=== PATIENT | female | born 1960 | race Caucasian/White ===

== ENCOUNTER → 2017-11-03 13:48 | Outpatient (CLI) | payer OTHER, SELFPAY | PROVIDERS: Visit Provider Obstetrics & Gynecology | DX: N39.0 Urinary tract infection, site not specified (principal) | CPT/HCPCS: 87086; 87088; 87186 ==

== ENCOUNTER → 2019-01-07 13:06 | Outpatient (CLI) | payer OTHER, SELFPAY ==
[2016-12-03 08:33] VITALS: BMI 24.3
[2019-01-09 15:55] LABS: HPV Reflexed? NOT INDICATED
== END ==
PROVIDERS: Visit Provider Obstetrics & Gynecology
DX: Z12.4 Encounter for screening for malignant neoplasm of cervix (principal)
CPT/HCPCS: 88175; G0145

== ENCOUNTER 2019-08-15 13:46 | Emergency (ER) | payer OTHER, SELFPAY ==
[2019-08-15 13:47] VITALS: BP 124/74; PULSE 77; PULSE 80; RESP 16; RESP 18; TEMP 36.9; O2SAT 100; BMI 22.7
--- NOTE | 2019-08-15 14:06 | RAD_ITS ---
STUDY: X-RAY - RIGHT KNEE REASON FOR EXAM: Female, 59 years old. Anterior knee pain following a fall. TECHNIQUE: 4 view(s) of the knee. COMPARISON: None. FINDINGS: Normal visualized distal femur. Normal visualized proximal tibia and fibula. Normal proximal tibiofibular articulation. Normal medial femorotibial compartment. Normal lateral femorotibial compartment. Normal patellofemoral articulation. Tiny joint effusion. RAD/Knee 4 or More Views IMPRESSION: Tiny joint effusion. Electronically Signed: Dax Lira, at 14:24 EST , Service support ,
--- NOTE | 2019-08-15 14:06 | ED.DCSUM_ITS ---
- ER Visit Summary Date of Service: 08/15/19 Chief Complaint: Fall and right knee pain History of Present Illness: The patient is a 59 F no seen past medical history. She slipped and fell on a rug at work landed on her right knee on linoleum floor. She denies any other injuries. Complaining of knee pain. She did use crutches to get in here. She did take a Tylenol at home with nothing for pain. She has no new history of prior surgery. She denies striking her head. Physical Examination: Middle-aged female. No acute distress. Vital signs are stable and afebrile. H EENT exam unremarkable. Atraumatic. Pupils round reactive light. Neck nontender. Lungs clear to auscultation bilaterally. Chest wall nontender. Heart regular rhythm no murmur. Abdomen soft nontender. Pelvic girdle intact and nontender. Upper extremities are nontender with normal range of motion. Left lower extremity is nontender. Right knee as a contusion. Is tender. She is able to lift the leg off the bed. Extensor mechanism is intact. Right hip and ankle are nontender. Neurovascular intact. She has normal dorsi plantarflexion her right foot and a normal DP pulse. The right knee she has limited flexion due to discomfort. There is no gross bony deformity. There is currently no effusion. Neurologic exam is normal. She is awake and alert with no focal deficits. Test Results: Right knee x-ray 4 views read by myself shows a small effusion otherwise no acute fracture or dislocation. Read both by myself and the radiologist. I went over the films with the patient. Emergency Department Course and Treatment: Knee will be x-rayed. She does not currently want anything for pain. She took Tylenol at home. Treatment Plan: Ice to her knee. Motrin for pain and swelling Tylenol for pain. Crutches as needed. Increase weightbearing as tolerated. Follow-up if not improving. Disposition: Discharge Impression: Acute fall at work Right knee contusion Worker's Comp. injury This note was generated with [employer] dictation software. It may contain incorrect words, spelling, and punctuation that were not noted in review of the chart prior to signing ED Disposition - Plan for ED Patient: Referrals: Cyndi Daniels MD [Primary Care Provider] -
--- NOTE | 2019-08-15 15:07 | ED.DEP ---
ED Disposition - Plan for ED Patient: Disposition: Home or Assisted Living Instructions: CONTUSION, Lower Extremity Referrals: Cyndi Daniels MD [Primary Care Provider] - 1 Week if not improving Additional Instructions: Ice and elevate your knee to decrease pain and swelling. Tylenol for pain and Motrin for pain and swelling. This should progressively improve if not follow-up for further evaluation.
== END 2019-08-15 15:28 | disposition home or self-care (01) ==
PROVIDERS: Emergency Provider Emergency Medicine; Family Provider Internal Medicine; PCP Internal Medicine
DX: S80.01XA Contusion of right knee, initial encounter (principal); W01.0XXA Fall on same level from slipping, tripping and stumbling without subsequent striking against object, initial encounter; Y99.0 Civilian activity done for income or pay; F41.9 Anxiety disorder, unspecified
CPT/HCPCS: 73564; 99282

== ENCOUNTER 2020-11-10 13:25 | Outpatient (RCR) | payer BC, SELFPAY ==
[2020-11-10] MEDS: COVID-19 VACC, MRNA(PFIZER)/PF 30 MCG/0.3 ML SYRINGE IM (11:22)
[2020-12-01] MEDS: COVID-19 VACC, MRNA(PFIZER)/PF 30 MCG/0.3 ML SYRINGE IM (10:53)
== END 2021-02-09 23:59 ==
LOC: IMMUN 13:25
PROVIDERS: PCP Internal Medicine; Visit Provider Family Medicine
DX: Z23 Encounter for immunization (principal)
CPT/HCPCS: 0001A; 0002A; 91300